=== PATIENT | female | born 2000 | race Caucasian/White ===

== ENCOUNTER 2020-02-10 11:36 | Emergency (ER) | payer SELFPAY ==
[2020-02-10 12:10] LABS: Bacteria/HPF 1+ HPF (None Seen); Bilirubin Negative (Negative); Blood, Urine Trace (Negative); Clarity Clear (Clear); Glucose, Urine (Dipstick) Normal (Negative); Leukocyte Negative Leu/uL (Negative); Nitrite Negative (Negative); Protein, Urine (Dipstick) Negative (Neg-Trace); Squamous Epithelial 0-3 HPF (0-3); Urobilinogen Normal mg/dL (Less than 2); WBC/HPF 0-3 HPF (0-3)
[2020-02-10] MEDS ORDERED: Metoclopramide HCl 10 MG/2 ML VIAL ONE (12:15)
[2020-02-10 12:37] LABS: #Eosinphils 0.2 thou/uL (0.0-0.7); #Lymphocytes 2.4 thou/uL (1.20-3.40); #Monocytes 1.1 thou/uL (0.11-0.59); #Neutrophils 4.7 thou/uL (1.40-6.50); %Basophils 0.4 % (0.0-1.0); %Eosinophils 2.5 % (0.0-10.0); %Lymphocytes 28.6 % (28.0-48.0); %Monocytes 12.4 % (0.0-4.0); %Neutrophils 56.1 % (31.0-61.0); Hemoglobin 12.5 g/dL (12.0-16.0); Mean Corpuscular HGB CONC 32.2 g/dL (32.0-36.0); Mean Corpuscular Hemoglobin 28.2 pg (25.0-35.0); Mean Corpuscular Volume 87.4 fL (78.0-98.0); Mean Platelet Volume 8.7 fL (7.4-10.4); Platelet Count 321 thou/uL (130-400); RBC Distribution Width 13.3 % (11.5-14.5); Red Blood Cell (RBC) Count 4.45 mill/uL (4.00-5.20); White Blood Cell (WBC) Count 8.4 thou/uL (4.8-10.8)
[2020-02-10 12:41] LABS: Pregnancy Test - Urine (BHCG) Negative (Negative); Pregu Control Background? CLEAR/WHITE (CLR/WHITE); Pregu Control Bar Appear? YES (CONTROL BAR); Specific Gravity 1.025 (1.002-1.036)
[2020-02-10 12:59] LABS: ALT (SGPT) 15 U/L (8-55); AST (SGOT) 24 U/L (5-30); Albumin 3.9 g/dL (3.5-5.0); Alkaline Phosphatase 113 U/L (40-100); Anion Gap 13 mmol/L (10-20); BUN (Urea Nitrogen) 10 mg/dL (8.4-21.0); Bilirubin, Total 0.3 mg/dL (0.2-1.2); Calc. Creatinine Clearance 0 mL/min (70-130); Calcium 9.1 mg/dL (7.8-10.44); Carbon Dioxide 22 mmol/L (22-29); Chloride 106 mmol/L (98-107); Estimated GFR-MDRD Greater than 90; Globulin 3.5 g/dL (2.4-3.5); Glucose 94 mg/dL (70-105); Protein, Total 7.4 g/dL (6.0-8.3); Sodium 137 mmol/L (136-145)
== END 2020-02-10 14:10 | disposition home or self-care (01) ==
LOC: ERS 11:36
DX: O99.89 Other specified diseases and conditions complicating pregnancy, childbirth and the puerperium (principal); R10.30 Lower abdominal pain, unspecified; Z3A.01 Less than 8 weeks gestation of pregnancy
CPT/HCPCS: 80053; 81003; 81015; 81025; 84702; 85025; 96365; J2765

== ENCOUNTER 2020-03-14 00:40 | Emergency (ER) | payer OTHER, SELFPAY ==
[2020-03-14 01:10] LABS: #Basophils 0.1 thou/uL (0.0-0.2); #Eosinphils 0.2 thou/uL (0.0-0.7); #Lymphocytes 2.9 thou/uL (1.20-3.40); #Monocytes 1.1 thou/uL (0.11-0.59); #Neutrophils 6.7 thou/uL (1.40-6.50); %Basophils 0.7 % (0.0-1.0); %Eosinophils 1.8 % (0.0-10.0); %Lymphocytes 26.3 % (28.0-48.0); %Monocytes 10.2 % (0.0-4.0); Hemoglobin 12.4 g/dL (12.0-16.0); Mean Corpuscular Hemoglobin 28.7 pg (25.0-35.0); Mean Corpuscular Volume 84.3 fL (78.0-98.0); Mean Platelet Volume 8.4 fL (7.4-10.4); Platelet Count 310 thou/uL (130-400); RBC Distribution Width 13.3 % (11.5-14.5); Red Blood Cell (RBC) Count 4.34 mill/uL (4.00-5.20)
== END 2020-03-14 03:50 | disposition home or self-care (01) ==
LOC: ERS 00:40
DX: O20.9 Hemorrhage in early pregnancy, unspecified (principal); Z3A.08 8 weeks gestation of pregnancy
CPT/HCPCS: 36415; 84702; 85025; 86900; 86901; 90384; 96372; 99284

== ENCOUNTER 2020-09-16 22:17 | Day surgery (SDC) | payer OTHER ==
[2020-09-16 23:18] VITALS: BP 106/55; TEMP 98.9; BMI 50.3
[2020-09-16] MEDS ORDERED: hydrALAZINE 20 MG/ML VIAL SLOW IVP PRN (23:55)
[2020-09-17] MEDS ORDERED: Lactated Ringer's 1,000 ML IV SCH
[2020-09-17 00:22] LABS: Amnisure Test No Membranes Rupture (No Rupture)
[2020-09-17 00:26] LABS: Amnisure Internal Control QC ACCEPTABLE (ACCEPTABLE)
[2020-09-17 00:41] LABS: #Basophils 0.1 thou/uL (0.0-0.2); #Eosinphils 0.2 thou/uL (0.0-0.7); #Lymphocytes 2.3 thou/uL (1.20-3.40); #Monocytes 1.2 thou/uL (0.11-0.59); #Neutrophils 8.7 thou/uL (1.40-6.50); %Basophils 0.5 % (0.0-1.0); %Eosinophils 1.5 % (0.0-10.0); %Lymphocytes 18.8 % (28.0-48.0); %Monocytes 9.5 % (0.0-4.0); %Neutrophils 69.8 % (31.0-61.0); Bacteria/HPF None Seen HPF (None Seen); Bilirubin Negative (Negative); Blood, Urine Negative (Negative); Clarity Clear (Clear); Glucose, Urine (Dipstick) Normal (Negative); Hemoglobin 11.6 g/dL (12.0-16.0); Ketone, Urine Negative (Negative); Leukocyte Negative Leu/uL (Negative); Mean Corpuscular Hemoglobin 29.6 pg (25.0-35.0); Mean Platelet Volume 8.7 fL (7.4-10.4); Nitrite Negative (Negative); Platelet Count 272 thou/uL (130-400); Protein, Urine (Dipstick) 30 mg/dL (Neg-Trace); RBC Distribution Width 13.9 % (11.5-14.5); RBC/HPF 0-3 HPF (0-3); Red Blood Cell (RBC) Count 3.92 mill/uL (4.00-5.20); Specific Gravity, Urine 1.025 (1.002-1.036); Squamous Epithelial 0-3 HPF (0-3); Urobilinogen Normal mg/dL (Less than 2); WBC/HPF 0-3 HPF (0-3); White Blood Cell (WBC) Count 12.5 thou/uL (4.8-10.8)
[2020-09-17] MEDS: Lactated Ringer's 1,000 ML IV SCH ×2 (01:20→02:20)
--- NOTE | 2020-09-17 08:27 | SS ---
DATE OF ADMISSION: 09/16/2020 DATE OF DISCHARGE: 09/17/2020 This is a labor and delivery triage note. REGULAR PHYSICIAN: Nikita Sutherland MD. EVALUATING PHYSICIAN: Hugo Terrell MD CHIEF COMPLAINT: Low back pain, possible leakage of fluid. HISTORY OF PRESENT ILLNESS: Ms. Flores is a 20-year-old white G1, P0 with an estimated date of confinement of 10/19/2020, who presents complaining of sharp lower back pain as well as concerns that she might be leaking a small amount of fluid. She denies vaginal bleeding or decreased movement. Her care has been with Dr. Sutherland and has been without complications. PAST MEDICAL HISTORY: None. PAST SURGICAL HISTORY: Includes, cholecystectomy, tonsillectomy, and placement of PE tubes in her ears. CURRENT MEDICATIONS: vitamins. ALLERGIES: TO VANCOMYCIN AND BACTRIM, BOTH OF WHICH GIVE HER HIVES. SOCIAL HISTORY: Denies tobacco, alcohol, or drug use. PHYSICAL EXAMINATION: VITAL SIGNS: Her vital signs are stable. She is initially tachycardic to 120s. She is afebrile. GENERAL: She is in no acute distress. ABDOMEN: Soft, nontender, and gravid. Pelvic examination on sterile speculum exam, no fluid is seen. On sterile vaginal exam, her cervix is closed, thick, and high. heart rate tracing is stable. Accelerations are seen. No decelerations are noted. No significant uterine contractions are seen. LABORATORY DATA: White count 12.5, hemoglobin and hematocrit 11.6 and 34.1, platelet count 272,000. Urinalysis, her urine is clear with a specific gravity of 1.025, trace protein, negative glucose, negative ketones, negative blood, negative nitrites. On microscopic, there are 0 to 3 rbc's, 0 to 3 squamous cells, and no bacteria is seen. AmniSure returns with no evidence of ruptured membranes. In triage, the patient is hydrated with 3 L of IV fluid over 2 to 3 hours of observation. Her pulse came down to 95 to 100. ASSESSMENT: 1. 35 and 2/7th week intrauterine . 2. No evidence of ruptured membranes. 3. No evidence of labor. PLAN: The patient was dismissed to home. Labor precautions were reviewed with her in detail. She was told to keep herself better hydrated at home with 6 to 8 tall glasses of water a day. She voiced understanding of her discharge instructions and was sent home in good condition. Job ID: [id number]
== END 2020-09-17 04:05 | disposition home or self-care (01) ==
LOC: L&D/OP 22:17
PROVIDERS: ATTEND Obstetrics & Gynecology
DX: O99.891 Other specified diseases and conditions complicating pregnancy (principal); M54.5 Low back pain; Z3A.35 35 weeks gestation of pregnancy; Z88.1 Allergy status to other antibiotic agents; Z88.2 Allergy status to sulfonamides
CPT/HCPCS: 36415; 51701; 81003; 81015; 84112; 85025; 96360; 96361; 99285

== ENCOUNTER 2020-10-10 08:06 | Outpatient (CLI) | payer OTHER ==
[2020-10-10 22:14] LABS: SARS-CoV-2 PCR by NAA Not Detected (NotDetected)
== END 2020-10-10 08:07 | disposition home or self-care (01) ==
LOC: LABBT 08:06
PROVIDERS: ATTEND Obstetrics & Gynecology
DX: Z01.812 Encounter for preprocedural laboratory examination (principal); Z20.822 Contact with and (suspected) exposure to COVID-19
CPT/HCPCS: 87635; U0003; U0005

== ENCOUNTER 2020-10-14 19:45 | Inpatient (IN) | payer OTHER ==
[~2020-10-14 19:45] MED LIST: Bupivacaine 0.25% HCL 30 ML VIAL ONE; Lidocaine 2% PF 5 ML VIAL ONE
[2020-10-14 21:11] VITALS: BMI 51.2
[2020-10-14] MEDS ORDERED: Ondansetron PF 4 MG/2 ML Vial IVP PRN (21:11)
[2020-10-14] MEDS ORDERED: Diphenoxylate HCl/Atropine Tablet PO PRN ×2 (21:11)
[2020-10-14] MEDS ORDERED: Lidocaine 1% (PF) 30 ML VIAL SC PRN (21:11)
[2020-10-14] MEDS ORDERED: Ibuprofen 800 MG TAB PO PRN (21:11)
[2020-10-14] MEDS ORDERED: Butorphanol Tartrate 1 MG/ML VIAL SLOW IVP PRN (21:11)
[2020-10-14] MEDS ORDERED: Promethazine HCl 25 MG/ML VIAL IM PRN (21:11)
[2020-10-14] MEDS ORDERED: HYDROcodone/Acetaminophen 5/325 mg Tablet PO PRN ×2 (21:11)
[2020-10-14] MEDS ORDERED: Docusate 100 MG CAP PO PRN (21:11)
[2020-10-14] MEDS ORDERED: hydrALAZINE 20 MG/ML VIAL SLOW IVP PRN (21:11)
[2020-10-14] MEDS ORDERED: Acetaminophen 500 MG TAB PO PRN (21:11)
[2020-10-14] MEDS: Lactated Ringer's 1,000 ML IV SCH (21:20)
[2020-10-14] MEDS ORDERED: NS w/ Oxytocin 30 units 1,000 ML IV PRN (21:25)
[2020-10-14] MEDS: Misoprostol 100 MCG TAB VAG SCH (21:29)
[2020-10-14 21:37] LABS: Mean Corpuscular HGB CONC 33.2 g/dL (32.0-36.0); Mean Corpuscular Volume 87.1 fL (78.0-98.0); Mean Platelet Volume 9.4 fL (7.4-10.4); Platelet Count 231 thou/uL (130-400); Red Blood Cell (RBC) Count 4.14 mill/uL (4.00-5.20); White Blood Cell (WBC) Count 9.8 thou/uL (4.8-10.8)
[2020-10-14 22:09] LABS: Syphilis Antibody Nonreactive (Nonreactive); Syphilis Antibody Index 0.06 S/CO (<1.00 Non-Reactive)
[2020-10-14 23:06] LABS: HBSAg Index 0.22 S/CO (0-0.99); Hep B Surf Ag Non-Reactive S/CO (NonReactive)
[2020-10-15] MEDS ORDERED: Fentanyl 4 mcg/Bup 0.1% Cadd 100 ML ONE (08:18)
[2020-10-15] MEDS ORDERED: FLU VACC QS2020-21(6MOS UP)/PF 60 MCG/0.5 ML SYRINGE IM ONE (09:00)
[2020-10-15] MEDS: Lactated Ringer's 1,000 ML IV SCH ×3 (09:28→23:10)
[2020-10-15] MEDS ORDERED: Lactated Ringer's 500 ML IV PRN (10:00)
[2020-10-15] MEDS ORDERED: Acetaminophen 325 MG TAB PO PRN ×2 (10:00→18:04)
[2020-10-15] MEDS ORDERED: ePHEDrine 50 MG/ML VIAL SLOW IVP PRN (10:00)
[2020-10-15] MEDS ORDERED: Naloxone HCl 0.4 mg/ml Vial IVP PRN ×4 (10:00→17:09)
[2020-10-15] MEDS ORDERED: Communication Order-Pharmacy FS SCH ×2 (10:00→17:15)
[2020-10-15] MEDS ORDERED: diphenhydrAMINE 50 MG/ML VIAL IVP PRN ×2 (10:00→17:09)
[2020-10-15] MEDS ORDERED: Ondansetron PF 4 MG/2 ML Vial IVP PRN ×3 (10:00→18:04)
[2020-10-15] MEDS ORDERED: Promethazine HCl 25 MG/ML VIAL IM PRN ×2 (10:00→17:09)
[2020-10-15] MEDS ORDERED: Fentanyl 4 mcg/Bupivacaine 0.1% Cassette 100 ML EPIDURAL SCH (10:00)
[2020-10-15] MEDS ORDERED: Bicitra 30 ML UDCUP ONE (15:00)
[2020-10-15] MEDS ORDERED: Azithromycin 500 MG VIAL ONE (15:00)
[2020-10-15] MEDS ORDERED: Fentanyl 100 MCG/2 ML VIAL ONE (16:08)
[2020-10-15] MEDS ORDERED: Oxytocin 10 UNITS/ML VIAL ONE ×2 (16:10→17:27)
[2020-10-15] MEDS ORDERED: PHENYLEPHRINE-NS 100 MCG/ML 10 ML SYRINGE ONE ×3 (16:10→18:00)
[2020-10-15] MEDS ORDERED: ePHEDrine 50 MG/ML VIAL ONE (16:10)
[2020-10-15] MEDS ORDERED: Ondansetron PF 4 MG/2 ML Vial ONE (16:12)
[2020-10-15] MEDS ORDERED: Famotidine/PF 20 mg/2ml Vial SLOW IVP PRN (16:31)
[2020-10-15] MEDS ORDERED: Bicitra 30 ML UDCUP PO PRN (16:31)
[2020-10-15] MEDS ORDERED: Azithromycin 500 MG in Sodium Chloride 0.9% 250 ML 250 ML IVPB SCH (16:45)
[2020-10-15] MEDS ORDERED: CEFAZOLIN 2 GM in Premix Bag 1 BAG IVPB SCH (16:45)
[2020-10-15] MEDS ORDERED: EPINEPHrine 1 MG/ML AMP ONE (16:47)
[2020-10-15] MEDS ORDERED: Lidocaine 2% 10 ML INJ ONE (16:50)
[2020-10-15] MEDS ORDERED: Misoprostol 200 MCG TAB ONE (16:57)
[2020-10-15] MEDS ORDERED: Carboprost 250 MCG/ML AMP ONE (16:57)
[2020-10-15] MEDS ORDERED: Methylergonovine 0.2 MG/ML VIAL ONE (16:57)
[2020-10-15] MEDS ORDERED: Dexamethasone 4 mg/ml Vial ONE (16:59)
[2020-10-15] MEDS ORDERED: Ondansetron HCl/PF 4 MG/2 ML Vial IVP PRN (17:09)
[2020-10-15] MEDS ORDERED: Promethazine HCl 25 MG SUPP PR PRN (17:09)
[2020-10-15] MEDS ORDERED: Naloxone HCl 0.4 mg/ml Vial IV PRN (17:09)
[2020-10-15] MEDS ORDERED: Phenylephrine 10 MG/ML VIAL ONE (18:00)
[2020-10-15] MEDS ORDERED: Bisacodyl 10 MG SUPP PR PRN (18:04)
[2020-10-15] MEDS ORDERED: Lanolin Ointment 7 GM TUBE TOP PRN (18:04)
[2020-10-15] MEDS ORDERED: diphenhydrAMINE 25 MG CAP PO PRN (18:04)
[2020-10-15] MEDS ORDERED: Misoprostol 200 MCG TAB PR PRN (18:04)
[2020-10-15] MEDS ORDERED: hydrALAZINE 20 MG/ML VIAL SLOW IVP PRN (18:04)
--- NOTE | 2020-10-15 18:19 | PDOC.OPDEL ---
OB Operative/Delivery Note - Additional Findings/Plan Compilations/Other Findings: Procedure Note Date of Procedure: 10/16/20 Resident Surgeon: Tess Ba MD PGY-3 Attending Surgeon: Ha Sutherland MD Procedure: Repeat low transverse caesarean section Preoperative Diagnosis: 1) Term intrauterine 2) Morbid Obesity, BMI >50 3) Rh negative 4) Failed Induction 5) Failure to dilate 6) Poor heart tracing Postoperative Diagnosis: 1) Term intrauterine , delivered 2) Morbid Obesity, BMI >50 3) Rh negative 4) brow presentation 5) Vacuum assisted delivery Anesthesia: Epidural Indications: The patient is a 20 year old female at 39.3weeks gestation who presented for induction of labor, she was never able to tolerate pitocin due to FHTs, she failed to dilate after 4cm. Delivered at 1713 on 10/15/20 Procedure in Detail: After risks, benefits, and alternatives were explained to the patient, she gave informed consent. Pre-operative antibiotics included Cefazolin 2 gram IV and Azithromycin 500mg IV. The patient was taken to the operating room and epidural was bolused by anesthesia. She was placed in the supine position with a left tilt and prepped and draped in usual sterile fashion. Epidural was tested and deemed adequate. A Pfannenstiel incision was made with a scalpel and carried down to the level of the fascia which was sharply nicked. The fascial cut was extended bilaterally with Dickey scissors. The inferior and superior edges of the cut fascial edges were elevated with Florentino clamps and the underlying rectus muscles were sharply and bluntly dissected free. The recti were divided digitally and retracted manually. The peritoneum was entered bluntly and retracted manually. A bladder flap was created using metzenbaum scissors. A low transverse score was made with the scalpel and the uterus was entered in the midline with the scalpel. Clear fluid was seen. The hysterotomy was extended manually. The was noted to be vertex with brow presentation, unable to delivery with standard fundal pressure. Vacuum x1 attempt was successful, remainder of body delivered with fundal pressure. Mouth and nares were bulb suctioned. Cord clamped and cut and grossly normal male infant was handed to waiting nurse. Cord blood was obtained. Placenta was manually extracted, found to be intact with 3 vessel cord and discarded. The uterus was externalized and the endometrium was curetted with a dry lap. The uterus was closed with a running locking #1 Chromic suture. Monocryl was used in figure of eight fashion over areas of bleeding.Following this hemostasis was noted. The abdomen was suctioned free of clots. Seprafilm was applied. The uterus was internalized and the hysterotomy was again noted to be hemostatic. Peritoneum was closed with 2-0 Vicryl. Rectus was closed with 2-0 Vicryl. The fascia was closed with a running non-locking 0-Vicryl suture. The subcutaneous tissue was irrigated and bleeders were cauterized. Subcutaneous tissue was closed with 2-0 plain gut. The skin was approximated with 4-0 Monocryl. Dermabond and a pressure dressing was placed. All counts were correct. The patient tolerated the procedure well and was taken to the recovery room in stable condition. Quantitative Blood Loss: 510ml Complications: None Specimens: Cord blood sent to lab for blood type Findings: Grossly normal male infant with Apgars of 8 and 9. Grossly normal placenta with 3 vessel cord discarded. Drains: Pires to gravity draining clear urine
[2020-10-15] MEDS ORDERED: NS w/ Oxytocin 30 units 500 ML IVPB SCH (18:30)
[2020-10-15] MEDS: Acetaminophen 650 MG Suppository PR SCH (19:00)
[2020-10-15] MEDS ORDERED: Ketorolac Tromethamine 30 MG/ML VIAL ONE (20:22)
[2020-10-15] MEDS: Ketorolac Tromethamine 30 MG/ML VIAL IVP PRN (20:23)
[2020-10-15] MEDS ORDERED: Ibuprofen 100 MG/5 ML UDCUP PO SCH (22:00)
[2020-10-15] MEDS: Docusate Calcium (SURFAK) 240 MG CAP PO SCH (22:00)
[2020-10-15] MEDS: Ferrous Sulfate 325 MG TAB PO SCH (22:00)
[2020-10-15] MEDS ORDERED: Morphine 2 MG/ML VIAL SLOW IVP PRN (23:13)
[2020-10-16] MEDS: Acetaminophen 650 MG Suppository PR SCH ×2 (00:59→05:21)
[2020-10-16] MEDS: Lactated Ringer's 1,000 ML IV SCH ×3 (01:21→19:24)
[2020-10-16] MEDS: Misoprostol 100 MCG TAB VAG SCH ×3 (01:22→01:24)
[2020-10-16] MEDS: Ketorolac Tromethamine 30 MG/ML VIAL IVP PRN ×2 (02:18→09:35)
[2020-10-16] MEDS ORDERED: Meperidine HCl/PF 25 MG/ML VIAL IM PRN (04:15)
[2020-10-16] MEDS ORDERED: Zolpidem Tartrate 5 MG TAB PO PRN (04:15)
[2020-10-16 06:29] LABS: Hemoglobin 9.6 g/dL (12.0-16.0); Mean Corpuscular HGB CONC 33.2 g/dL (32.0-36.0); Mean Corpuscular Hemoglobin 28.9 pg (25.0-35.0); Mean Platelet Volume 9.1 fL (7.4-10.4); Platelet Count 189 thou/uL (130-400); RBC Distribution Width 13.9 % (11.5-14.5); Red Blood Cell (RBC) Count 3.31 mill/uL (4.00-5.20); White Blood Cell (WBC) Count 13.5 thou/uL (4.8-10.8)
[2020-10-16] MEDS ORDERED: Adacel (T-DAP) 0.5 ML SYRINGE IM ONE (09:00)
[2020-10-16] MEDS: Prenatal Vitamin 1 TAB PO SCH (09:11)
[2020-10-16] MEDS: HYDROcodone/Acetaminophen 5/325 mg Tablet PO PRN ×3 (09:11→19:27)
[2020-10-16] MEDS: Simethicone Chewable 80 MG TAB PO PRN ×2 (09:11→18:39)
[2020-10-16] MEDS: Docusate Calcium (SURFAK) 240 MG CAP PO SCH ×2 (09:12→19:27)
[2020-10-16] MEDS: Ferrous Sulfate 325 MG TAB PO SCH ×2 (09:12→22:53)
[2020-10-16] MEDS ORDERED: Sodium Chloride 0.9% 10 ML ONE (09:34)
[2020-10-16] MEDS ORDERED: Acetaminophen 325 MG TAB PO PRN (12:00)
[2020-10-16] MEDS ORDERED: Ibuprofen 800 MG TAB PO SCH (22:00)
[2020-10-16] MEDS: Ibuprofen 100 MG/5 ML UDCUP PO SCH (22:47)
[2020-10-17] MEDS: Lactated Ringer's 1,000 ML IV SCH ×2 (03:02→14:07)
[2020-10-17] MEDS: HYDROcodone/Acetaminophen 5/325 mg Tablet PO PRN ×2 (05:14→14:05)
[2020-10-17] MEDS: Ibuprofen 100 MG/5 ML UDCUP PO SCH ×2 (05:16→14:06)
[2020-10-17] MEDS: Prenatal Vitamin 1 TAB PO SCH (08:42)
[2020-10-17] MEDS: Docusate Calcium (SURFAK) 240 MG CAP PO SCH (08:42)
[2020-10-17] MEDS: Ferrous Sulfate 325 MG TAB PO SCH (08:45)
[2020-10-17] MEDS: Simethicone Chewable 80 MG TAB PO PRN (14:05)
[2020-10-17 15:01] VITALS: BP 108/69; TEMP 98.1
== END 2020-10-17 15:30 | disposition home or self-care (01) | DRG 787 ==
LOC: L&D 20:18 → 3SW 10-15 21:05
PROVIDERS: ADMIT Obstetrics & Gynecology; ATTEND Obstetrics & Gynecology
PROC: 3E033VJ Introduction of Other Hormone into Peripheral Vein, Percutaneous Approach (ICD-10-PCS; 2020-10-14)
PROC: 3E0D7GC Introduction of Other Therapeutic Substance into Mouth and Pharynx, Via Natural or Artificial Opening (ICD-10-PCS; 2020-10-14)
PROC: 10D00Z1 Extraction of Products of Conception, Low, Open Approach (ICD-10-PCS; principal; 2020-10-16)
DX: O99.214 Obesity complicating childbirth (principal); D62 Acute posthemorrhagic anemia; E66.01 Morbid (severe) obesity due to excess calories; Z3A.39 39 weeks gestation of pregnancy; Z20.822 Contact with and (suspected) exposure to COVID-19; Z37.0 Single live birth; O32.3XX0 Maternal care for face, brow and chin presentation, not applicable or unspecified; O61.0 Failed medical induction of labor; O62.0 Primary inadequate contractions; Z88.1 Allergy status to other antibiotic agents; Z88.2 Allergy status to sulfonamides; O90.81 Anemia of the puerperium
CPT/HCPCS: 36415; 51702; 85027; 86780; 86850; 86900; 86901; 87340; J0171; J0595; J1100; J1885; J2001; J2210; J2370; J2405; J3490; S0020